=== PATIENT | male | born 1965 | race Caucasian/White ===

== ENCOUNTER 2017-11-04 21:23 | Inpatient (IN) | payer MEDICAID, OTHER ==
[2017-11-04] MEDS: ALBUTEROL 0.083% (NEB) 2.5 MG/3 ML AMP NEB (22:58)
[2017-11-04] MEDS: IPRATROPIUM (NEB) 0.5 MG/2.5 ML AMP NEB (22:58)
[2017-11-04] MEDS: METHYLPREDNISOLONE 125 MG INJ IV (23:39)
[2017-11-04 23:45] LABS: ADD MAN DIFF? NO
[2017-11-04 23:49] LABS: ABNORMAL IP MESSAGE 1; BASOPHIL # 0.1 10^3/ul (0.0-0.1); BASOPHILS % 0.6 % (0.0-2.0); EOSINOPHILS % 0.1 % (0.0-7.0); HEMATOCRIT 36.1 % (42.0-52.0); HEMOGLOBIN 12.4 g/dl (14.0-18.0); LYMPHOCYTES # 1.1 10^3/ul (0.8-2.9); LYMPHOCYTES % 5.3 % (15.0-51.0); MEAN CORPUSCULAR HEMOGLOBIN 30.1 pg (29.0-33.0); MEAN CORPUSCULAR HGB CONC 34.3 g/dl (32.0-37.0); MEAN CORPUSCULAR VOLUME 87.6 fl (82.0-101.0); MEAN PLATELET VOLUME 10.3 fl (7.4-10.4); MONOCYTE # 2.3 10^3/ul (0.3-0.9); MONOCYTES % 11.6 % (0.0-11.0); NEUTROPHIL # 16.4 10^3/ul (1.6-7.5); PLATELET COUNT 435 10^3/UL (140-415); POSITIVE DIFF @See below; RED BLOOD COUNT 4.12 10^6/ul (4.70-6.10); RED CELL DISTRIBUTION WIDTH 13.4 % (11.5-14.5)
[2017-11-05 00:20] LABS: ADD UMIC NO; UR ASCORBIC ACID NEGATIVE (NEGATIVE); UR BILIRUBIN (Dip) NEGATIVE (NEGATIVE); UR BLOOD (Dip) NEGATIVE (NEGATIVE); UR CLARITY CLEAR (CLEAR); UR COLOR STRAW (YELLOW); UR GLUCOSE (Dip) 3+ mg/dL (NEGATIVE); UR KETONES (Dip) 2+ mg/dL (NEGATIVE); UR LEUKOCYTE ESTERASE (Dip) NEGATIVE Leu/ul (NEGATIVE); UR NITRITE (Dip) NEGATIVE (NEGATIVE); UR SPECIFIC GRAVITY (Dip) 1.026 (1.003-1.030); UR TOTAL PROTEIN (Dip) NEGATIVE (NEGATIVE); UR UROBILINOGEN (Dip) NEGATIVE (NEGATIVE)
[2017-11-05 00:31] LABS: INR 1.03; PROTIME 13.6 Sec (11.9-14.9); PT RATIO 1.1
[2017-11-05 00:32] LABS: PARTIAL THROMBOPLASTIN TIME 36.4 Sec (25.0-35.0)
[2017-11-05 00:41] LABS: LACTIC ACID 1.7 mmol/L (0.5-2.0)
[2017-11-05 00:44] LABS: ALANINE AMINOTRANSFERASE 20 IU/L (13-69); ALBUMIN 3.2 g/dl (3.3-4.9); ALBUMIN/GLOBULIN RATIO 0.84; ALKALINE PHOSPHATASE 157 IU/L (42-121); ANION GAP 27 (8-16); ASPARTATE AMINO TRANSFERASE 12 IU/L (15-46); BILIRUBIN,INDIRECT 0.2 mg/dl (0-1.1); BILIRUBIN,TOTAL 0.2 mg/dl (0.2-1.3); BLOOD UREA NITROGEN 12 mg/dl (7-20); CALCIUM 9.3 mg/dl (8.4-10.2); CARBON DIOXIDE 23 mmol/L (21-31); CHLORIDE 84 mmol/L (97-110); CREATININE 0.52 mg/dl (0.61-1.24); POTASSIUM 5.4 mmol/L (3.5-5.1); SODIUM 129 mmol/L (135-144)
[2017-11-05 00:49] LABS: GLUCOSE 604 mg/dl (70-220)
[2017-11-05 01:24] LABS: TROPONIN-I < 0.012 ng/ml (0.00-0.12)
[2017-11-05] MEDS: CEFEPIME 2GM/50 ML (PMX) 50 ML IVPB (01:54)
[2017-11-05] MEDS: SODIUM CHLORIDE 0.9% 1L BAG IV* (01:54)
[2017-11-05 02:19] LABS: LACTIC ACID 1.4 mmol/L (0.5-2.0)
[2017-11-05] MEDS: VANCOMYCIN 1 GM (PMX) 250 ML IVPB (03:03)
[2017-11-05] MEDS: INSULIN LISPRO 100 UNIT/ML VIAL SC (04:10)
[2017-11-05] MEDS ORDERED: DEXTROSE 50% 50 ML SYRINGE IV ×2 (04:30)
[2017-11-05] MEDS ORDERED: IPRATROPIUM (NEB) 0.5 MG/2.5 ML AMP HHN (04:30)
[2017-11-05] MEDS ORDERED: LEVALBUTEROL (NEB) 0.63 MG/3 ML AMP HHN (04:30)
[2017-11-05] MEDS ORDERED: GLUCOSE GEL 15 GRAM TUBE BUCCAL (04:30)
[2017-11-05] MEDS ORDERED: GLUCOSE GEL 15 GRAM TUBE PO ×2 (04:30)
[2017-11-05] MEDS ORDERED: GLUCAGON 1 MG INJ IM (04:30)
[2017-11-05] MEDS: SOD CHLORIDE 0.9% 1,000 ML IV ×4 (04:46→20:12)
[2017-11-05] MEDS: INSULIN ASPART [NOVOLOG] 3 ML PEN SC ×6 (05:51→22:05)
[2017-11-05] MEDS: INSULIN GLARGINE [LANtus] 3 ML PEN SC ×2 (05:53→07:08)
[2017-11-05 07:00] LABS: LACTIC ACID 1.4 mmol/L (0.5-2.0)
[2017-11-05] MEDS: CEFTRIAXONE 1 GM/50 ML (PMX) 50 ML IVPB ×2 (08:33→21:57)
[2017-11-05] MEDS: AZITHROMYCIN 500MG/NS (PMX) 250 ML IVPB (10:46)
[2017-11-05 20:49] LABS: HEMOGLOBIN A1C 12.9 % (0-5.9)
[2017-11-06] MEDS: INSULIN GLARGINE [LANtus] 3 ML PEN SC ×2 (00:45→21:04)
[2017-11-06] MEDS: INSULIN ASPART [NOVOLOG] 3 ML PEN SC ×8 (00:46→21:05)
[2017-11-06] MEDS: ACCU-CHEK XX (02:00)
[2017-11-06] MEDS ORDERED: ACCU-CHEK XX (02:00)
[2017-11-06] MEDS: SOD CHLORIDE 0.9% 1,000 ML IV ×5 (04:32→14:30)
[2017-11-06 06:34] LABS: ADD MAN DIFF? NO
[2017-11-06 06:38] LABS: WHITE BLOOD COUNT 23.2 10^3/ul (4.8-10.8)
[2017-11-06 06:38] LABS: ABNORMAL IP MESSAGE 1; BASOPHILS % 0.1 % (0.0-2.0); EOSINOPHILS # 0.1 10^3/ul (0.0-0.5); EOSINOPHILS % 0.4 % (0.0-7.0); HEMATOCRIT 27.4 % (42.0-52.0); HEMOGLOBIN 9.8 g/dl (14.0-18.0); LYMPHOCYTES # 1.9 10^3/ul (0.8-2.9); LYMPHOCYTES % 8.1 % (15.0-51.0); MEAN CORPUSCULAR HEMOGLOBIN 31.1 pg (29.0-33.0); MEAN CORPUSCULAR HGB CONC 35.8 g/dl (32.0-37.0); MEAN PLATELET VOLUME 9.4 fl (7.4-10.4); MONOCYTE # 1.8 10^3/ul (0.3-0.9); MONOCYTES % 7.6 % (0.0-11.0); NEUTROPHIL # 19.2 10^3/ul (1.6-7.5); NEUTROPHILS % 83.1 % (39.0-77.0); PLATELET COUNT 331 10^3/UL (140-415); POSITIVE DIFF @See below; RED BLOOD COUNT 3.15 10^6/ul (4.70-6.10); RED CELL DISTRIBUTION WIDTH 13.4 % (11.5-14.5)
[2017-11-06 07:08] LABS: ANION GAP 9 (8-16); BLOOD UREA NITROGEN 14 mg/dl (7-20); CALCIUM 8.1 mg/dl (8.4-10.2); CARBON DIOXIDE 28 mmol/L (21-31); CHLORIDE 103 mmol/L (97-110); CREATININE 0.34 mg/dl (0.61-1.24); GLUCOSE 208 mg/dl (70-220); MAGNESIUM 1.8 mg/dl (1.7-2.5); PHOSPHORUS 1.6 mg/dl (2.5-4.9); POTASSIUM 3.1 mmol/L (3.5-5.1); SODIUM 137 mmol/L (135-144)
[2017-11-06 07:09] LABS: CHOLESTEROL 82 mg/dl (100-200)
[2017-11-06 07:09] LABS: CHOL/HDL RATIO 2.7 RATIO; HDL CHOLESTEROL 30 mg/dl (28-71); LDL CHOLESTEROL,CALCULATED 40 mg/dl; TRIGLYCERIDES 60 mg/dl (0-149)
[2017-11-06] MEDS: CEFTRIAXONE 1 GM/50 ML (PMX) 50 ML IVPB ×2 (08:42→21:03)
[2017-11-06] MEDS: ENOXAPARIN 40 MG/0.4 ML SYG SC (08:42)
[2017-11-06] MEDS: AZITHROMYCIN 500MG/NS (PMX) 250 ML IVPB (09:45)
[2017-11-06] MEDS: POTASSIUM PHOSPHATE 40 MEQ in SOD CHLORIDE 0.9% 250 ML IVPB (12:00)
[2017-11-07] MEDS: SOD CHLORIDE 0.9% 1,000 ML IV ×3 (00:50→16:00)
[2017-11-07] MEDS: ACCU-CHEK XX (01:44)
[2017-11-07 05:58] LABS: ADD MAN DIFF? NO
[2017-11-07 06:00] LABS: WHITE BLOOD COUNT 11.2 10^3/ul (4.8-10.8)
[2017-11-07 06:00] LABS: BASOPHILS % 0.4 % (0.0-2.0); EOSINOPHILS # 0.4 10^3/ul (0.0-0.5); EOSINOPHILS % 3.7 % (0.0-7.0); HEMATOCRIT 28.7 % (42.0-52.0); HEMOGLOBIN 9.9 g/dl (14.0-18.0); LYMPHOCYTES # 2.3 10^3/ul (0.8-2.9); LYMPHOCYTES % 20.9 % (15.0-51.0); MEAN CORPUSCULAR HEMOGLOBIN 30.2 pg (29.0-33.0); MEAN CORPUSCULAR HGB CONC 34.5 g/dl (32.0-37.0); MEAN CORPUSCULAR VOLUME 87.5 fl (82.0-101.0); MEAN PLATELET VOLUME 9.3 fl (7.4-10.4); MONOCYTE # 1.1 10^3/ul (0.3-0.9); MONOCYTES % 9.5 % (0.0-11.0); NEUTROPHIL # 7.3 10^3/ul (1.6-7.5); NEUTROPHILS % 65.1 % (39.0-77.0); PLATELET COUNT 287 10^3/UL (140-415); RED BLOOD COUNT 3.28 10^6/ul (4.70-6.10); RED CELL DISTRIBUTION WIDTH 13.6 % (11.5-14.5)
[2017-11-07 06:37] LABS: ANION GAP 10 (8-16); BLOOD UREA NITROGEN 10 mg/dl (7-20); CALCIUM 7.9 mg/dl (8.4-10.2); CARBON DIOXIDE 32 mmol/L (21-31); CHLORIDE 101 mmol/L (97-110); CREATININE 0.44 mg/dl (0.61-1.24); GLUCOSE 130 mg/dl (70-220); MAGNESIUM 1.7 mg/dl (1.7-2.5); PHOSPHORUS 2.9 mg/dl (2.5-4.9); POTASSIUM 3.7 mmol/L (3.5-5.1); SODIUM 139 mmol/L (135-144)
[2017-11-07] MEDS: INSULIN ASPART [NOVOLOG] 3 ML PEN SC ×7 (08:00→21:02)
[2017-11-07] MEDS: CEFTRIAXONE 1 GM/50 ML (PMX) 50 ML IVPB ×2 (08:31→21:04)
[2017-11-07] MEDS: AZITHROMYCIN 500MG/NS (PMX) 250 ML IVPB (09:47)
[2017-11-07] MEDS: ENOXAPARIN 40 MG/0.4 ML SYG SC (09:48)
[2017-11-07] MEDS: INSULIN GLARGINE [LANtus] 3 ML PEN SC (21:00)
== END 2017-11-07 21:55 | disposition home or self-care (01) | DRG 871 ==
LOC: E/R 21:23 → PP2 11-05 02:39
DX: A41.9 Sepsis, unspecified organism (principal); J18.9 Pneumonia, unspecified organism; E87.1 Hypo-osmolality and hyponatremia; E10.65 Type 1 diabetes mellitus with hyperglycemia; E87.5 Hyperkalemia; E87.6 Hypokalemia; R09.02 Hypoxemia; Z87.891 Personal history of nicotine dependence; Z79.4 Long term (current) use of insulin
CPT/HCPCS: 36415; 71045; 80048; 80053; 80061; 81003; 82962; 83036; 83605; 83735; 84100; 84484; 85025; 85610; 85730; 87040; 87086; 87400; 93005; 94664; 96372; 96374; 96375; 99291-25

== ENCOUNTER 2018-08-14 11:26 | Inpatient (IN) | payer MEDICAID ==
[2018-08-14 12:22] LABS: ADD MAN DIFF? NO
[2018-08-14] MEDS: ONDANSETRON 4 MG INJ IV (12:23)
[2018-08-14] MEDS: PIPER-TAZO 3.375 GM IV (PMX) 100 ML IVPB ×2 (12:24→20:40)
[2018-08-14] MEDS: morphine 4 MG/ML VIAL IV (12:24)
[2018-08-14] MEDS: SOD CHLORIDE 0.9% 1,000 ML IV ×3 (12:24→19:08)
[2018-08-14 12:31] LABS: ABNORMAL IP MESSAGE 1; BASOPHILS % 0.2 % (0.0-2.0); EOSINOPHILS % 0.1 % (0.0-7.0); HEMATOCRIT 34.6 % (42.0-52.0); HEMOGLOBIN 11.2 g/dl (14.0-18.0); LYMPHOCYTES # 1.3 10^3/ul (0.8-2.9); LYMPHOCYTES % 6.1 % (15.0-51.0); MEAN CORPUSCULAR HEMOGLOBIN 29.2 pg (29.0-33.0); MEAN CORPUSCULAR HGB CONC 32.4 g/dl (32.0-37.0); MEAN CORPUSCULAR VOLUME 90.3 fl (82.0-101.0); MEAN PLATELET VOLUME 10.4 fl (7.4-10.4); MONOCYTE # 1.7 10^3/ul (0.3-0.9); MONOCYTES % 8.2 % (0.0-11.0); NEUTROPHIL # 17.1 10^3/ul (1.6-7.5); NEUTROPHILS % 84.1 % (39.0-77.0); PLATELET COUNT 232 10^3/UL (140-415); POSITIVE DIFF @See below; RED BLOOD COUNT 3.83 10^6/ul (4.70-6.10); RED CELL DISTRIBUTION WIDTH 12.6 % (11.5-14.5)
[2018-08-14 12:31] LABS: WHITE BLOOD COUNT 20.4 10^3/ul (4.8-10.8)
[2018-08-14 12:49] LABS: LACTIC ACID 1.2 mmol/L (0.5-2.0)
[2018-08-14 12:49] LABS: ALANINE AMINOTRANSFERASE 47 IU/L (13-69); ALBUMIN 3.4 g/dl (3.3-4.9); ALBUMIN/GLOBULIN RATIO 1.25; ALKALINE PHOSPHATASE 210 IU/L (42-121); ANION GAP 24 (5-13); ASPARTATE AMINO TRANSFERASE 51 IU/L (15-46); BILIRUBIN,INDIRECT 0.3 mg/dl (0-1.1); BILIRUBIN,TOTAL 0.3 mg/dl (0.2-1.3); CARBON DIOXIDE 16 mmol/L (21-31); CHLORIDE 92 mmol/L (97-110); CREATININE 0.62 mg/dl (0.61-1.24); Estimated GFR > 60 mL/min (>60); INR 1.01; LIPASE 56 U/L (23-300); POTASSIUM 4.8 mmol/L (3.5-5.1); PROTIME 13.4 Sec (11.9-14.9); SODIUM 132 mmol/L (135-144); TOTAL PROTEIN 6.1 g/dl (6.1-8.1)
[2018-08-14 12:50] LABS: BLOOD UREA NITROGEN 24 mg/dl (7-20)
[2018-08-14 13:17] LABS: GLUCOSE 621 mg/dl (70-220)
[2018-08-14] MEDS: INSULIN REGULAR, HUMAN 100 UNIT/1 ML 3ML VIAL SC (13:25)
[2018-08-14] MEDS: CEFTRIAXONE 1 GM/50 ML (PMX) 50 ML IVPB (13:25)
[2018-08-14] MEDS ORDERED: DEXTROSE 50% 50 ML SYRINGE IV ×2 (13:30)
[2018-08-14] MEDS ORDERED: SODIUM CHLORIDE 23.4% 77 MEQ in DEXTROSE 10% 1,000 ML IV ×2 (13:30→16:46)
[2018-08-14] MEDS ORDERED: POTASSIUM CHLORIDE 40 MEQ in SOD CHLORIDE 0.9% 1,000 ML IV ×2 (13:30→16:46)
[2018-08-14] MEDS ORDERED: SODIUM CHLORIDE 23.4% 77 MEQ, POTASSIUM CHLORIDE 40 MEQ in DEXTROSE 10% 1,000 ML IV ×2 (13:30→16:46)
[2018-08-14] MEDS ORDERED: SOD CHLORIDE 0.9% 1,000 ML IV ×2 (13:30→16:46)
[2018-08-14 13:33] LABS: AADO2 Arterial 16.1 mmHg (7.0-24.0); Allen Test ACCEPTAB; Arterial Base Excess -11.3 mmol/L (-3.0-3); Arterial COHb 0.1 % (0.0-3.0); Arterial Fraction of Oxyhgb 96.8 % (93.0-99.0); Arterial HCO3 13.9 mmol/L (22.0-26.0); Arterial MetHb 0.1 % (0.0-1.5); MODE ROOM AIR; Site Left Radial
[2018-08-14] MEDS: SOD CHLORIDE 0.9% 100 ML (14:15)
[2018-08-14 14:16] LABS: HEMOGLOBIN A1C 13.7 % (0-5.9)
[2018-08-14] MEDS: IOHEXOL 300MG/ML 150 ML BTL (14:16)
[2018-08-14] MEDS: LACTATED RINGER'S 540 ML IV (14:34)
[2018-08-14] MEDS: VANCOMYCIN 1 GM (PMX) 250 ML IVPB (14:50)
[2018-08-14 15:13] LABS: ERYTHROCYTE SEDIMENTATION RATE 118 mm/Hr (0-20)
[2018-08-14 15:23] LABS: C-REACTIVE PROTEIN 34.9 mg/dl (0.0-0.9)
[2018-08-14 15:37] LABS: MODE ROOM AIR; MetHgb Venous 0 %; Sample Type Blood venous; Site VENOUS LINE; Venous COHb 0.1 %; Venous Fraction OxyHgb 86.9 %; Venous Total Hemglobin 11.6 g/dl
[2018-08-14] MEDS: INSULIN REGULAR, HUMAN 100 UNIT in SOD CHLORIDE 0.9% 100 ML IV (15:38)
[2018-08-14] MEDS: POTASSIUM CHLORIDE 30 MEQ in SOD CHLORIDE 0.9% 1,000 ML IV (15:40)
[2018-08-14 15:55] LABS: ADD UMIC YES; UR ASCORBIC ACID NEGATIVE (NEGATIVE); UR BILIRUBIN (Dip) NEGATIVE (NEGATIVE); UR BLOOD (Dip) 1+ mg/dL (NEGATIVE); UR CLARITY CLEAR (CLEAR); UR COLOR STRAW (YELLOW); UR GLUCOSE (Dip) 3+ mg/dL (NEGATIVE); UR KETONES (Dip) 2+ mg/dL (NEGATIVE); UR LEUKOCYTE ESTERASE (Dip) NEGATIVE Leu/ul (NEGATIVE); UR NITRITE (Dip) NEGATIVE (NEGATIVE); UR RBC 1 /HPF (0-5); UR SPECIFIC GRAVITY (Dip) 1.032 (1.003-1.030); UR TOTAL PROTEIN (Dip) NEGATIVE (NEGATIVE); UR UROBILINOGEN (Dip) NEGATIVE (NEGATIVE); UR WBC 0 /HPF (0-5)
[2018-08-14 16:32] LABS: ANION GAP 19 (5-13); BLOOD UREA NITROGEN 18 mg/dl (7-20); CALCIUM 8.8 mg/dl (8.4-10.2); CARBON DIOXIDE 19 mmol/L (21-31); CHLORIDE 101 mmol/L (97-110); CREATININE 0.45 mg/dl (0.61-1.24); Estimated GFR > 60 mL/min (>60); GLUCOSE 345 mg/dl (70-220); MAGNESIUM 1.9 mg/dl (1.7-2.5); PHOSPHORUS 2.3 mg/dl (2.5-4.9); SODIUM 139 mmol/L (135-144)
[2018-08-14] MEDS ORDERED: POTASSIUM CHLORIDE 30 MEQ in SOD CHLORIDE 0.9% 1,000 ML IV (16:46)
[2018-08-14] MEDS: SODIUM CHLORIDE 23.4% 77 MEQ, POTASSIUM CHLORIDE 30 MEQ in DEXTROSE 10% 1,000 ML IV (16:51)
[2018-08-14] MEDS ORDERED: LORAZEPAM 2 MG INJ IV (17:00)
[2018-08-14] MEDS ORDERED: VANCOMYCIN IV PER PHARMACY XX (17:00)
[2018-08-14] MEDS ORDERED: NITROGLYCERIN (SL) 0.4 MG TAB SL (17:00)
[2018-08-14] MEDS ORDERED: ONDANSETRON 4 MG INJ IV (17:00)
[2018-08-14] MEDS ORDERED: DOCUSATE SODIUM 100 MG CAP PO (17:00)
[2018-08-14] MEDS ORDERED: MAGNESIUM HYDROXIDE 30ML CUP PO (17:00)
[2018-08-14] MEDS ORDERED: ACETAMINOPHEN 325 MG TAB PO (17:00)
[2018-08-14] MEDS: ACCU-CHEK XX ×7 (17:00→23:49)
[2018-08-14] MEDS ORDERED: ALBUTEROL/IPRATROPIUM (NEB) 3 ML AMP HHN (17:00)
[2018-08-14] MEDS ORDERED: INSULIN REGULAR, HUMAN 100 UNIT in SOD CHLORIDE 0.9% 100 ML IV (17:00)
[2018-08-14] MEDS ORDERED: hydrALAzine 20 MG INJ IV (17:00)
[2018-08-14] MEDS ORDERED: NACL 0.9% 3 ML SYG IV (17:00)
[2018-08-14 17:33] LABS: Allen Test ACCEPTAB; MODE ROOM AIR; MetHgb Venous 0.1 %; Sample Type Blood venous; Site VENOUS LINE; Venous COHb 0.3 %; Venous Fraction OxyHgb 75.4 %; Venous Oxygen Sat 75.7 mmHG (55.0-75.0); Venous Total Hemglobin 11.3 g/dl
[2018-08-14 17:51] LABS: FREE T4 (FREE THYROXINE) 1.15 ng/dl (0.64-1.79)
[2018-08-14 19:35] LABS: ANION GAP 13 (5-13); BLOOD UREA NITROGEN 14 mg/dl (7-20); CALCIUM 8.7 mg/dl (8.4-10.2); CARBON DIOXIDE 20 mmol/L (21-31); CHLORIDE 105 mmol/L (97-110); CREATININE 0.43 mg/dl (0.61-1.24); Estimated GFR > 60 mL/min (>60); GLUCOSE 218 mg/dl (70-220); MAGNESIUM 1.9 mg/dl (1.7-2.5); PHOSPHORUS 1.7 mg/dl (2.5-4.9); POTASSIUM 3.9 mmol/L (3.5-5.1); SODIUM 138 mmol/L (135-144)
[2018-08-14 21:33] LABS: MODE ROOM AIR; MetHgb Venous 0.1 %; Sample Type Blood venous; Site VENOUS LINE; Venous COHb 0.1 %; Venous Fraction OxyHgb 93.7 %; Venous Oxygen Sat 93.9 mmHG (55.0-75.0); Venous Total Hemglobin 10.7 g/dl
[2018-08-14 22:31] LABS: ANION GAP 9 (5-13); BLOOD UREA NITROGEN 13 mg/dl (7-20); CALCIUM 8.5 mg/dl (8.4-10.2); CARBON DIOXIDE 25 mmol/L (21-31); CHLORIDE 106 mmol/L (97-110); CREATININE 0.43 mg/dl (0.61-1.24); Estimated GFR > 60 mL/min (>60); GLUCOSE 265 mg/dl (70-220); MAGNESIUM 1.8 mg/dl (1.7-2.5); POTASSIUM 3.9 mmol/L (3.5-5.1); SODIUM 140 mmol/L (135-144)
[2018-08-14] MEDS: HEPARIN 5,000 UNIT/1 ML VIAL SC (22:44)
[2018-08-15] MEDS: ACCU-CHEK XX ×8 (00:25→06:00)
[2018-08-15] MEDS: INSULIN GLARGINE [LANTus] (100 UNITS/ML) SYG SC ×2 (00:31→21:02)
[2018-08-15] MEDS: PIPER-TAZO 3.375 GM IV (PMX) 100 ML IVPB ×4 (01:49→17:20)
[2018-08-15] MEDS: SODIUM CHLORIDE 23.4% 77 MEQ, POTASSIUM CHLORIDE 30 MEQ in DEXTROSE 10% 1,000 ML IV (01:50)
[2018-08-15] MEDS: SOD CHLORIDE 0.9% 1,000 ML IV ×3 (02:46→22:46)
[2018-08-15] MEDS: VANCOMYCIN 1 GM in 250 ML IVPB ×2 (03:24→15:20)
[2018-08-15 05:23] LABS: ADD MAN DIFF? NO
[2018-08-15 05:41] LABS: ABNORMAL IP MESSAGE 1; BASOPHILS % 0.1 % (0.0-2.0); EOSINOPHILS # 0.5 10^3/ul (0.0-0.5); EOSINOPHILS % 3.8 % (0.0-7.0); HEMATOCRIT 27.4 % (42.0-52.0); HEMOGLOBIN 9.4 g/dl (14.0-18.0); LYMPHOCYTES # 1.3 10^3/ul (0.8-2.9); LYMPHOCYTES % 9.7 % (15.0-51.0); MEAN CORPUSCULAR HEMOGLOBIN 30.2 pg (29.0-33.0); MEAN CORPUSCULAR HGB CONC 34.3 g/dl (32.0-37.0); MEAN CORPUSCULAR VOLUME 88.1 fl (82.0-101.0); MEAN PLATELET VOLUME 10.4 fl (7.4-10.4); MONOCYTES % 14.6 % (0.0-11.0); NEUTROPHIL # 9.4 10^3/ul (1.6-7.5); NEUTROPHILS % 70.6 % (39.0-77.0); PLATELET COUNT 202 10^3/UL (140-415); POSITIVE DIFF @See below; RED BLOOD COUNT 3.11 10^6/ul (4.70-6.10); RED CELL DISTRIBUTION WIDTH 12.5 % (11.5-14.5)
[2018-08-15 05:41] LABS: WHITE BLOOD COUNT 13.4 10^3/ul (4.8-10.8)
[2018-08-15] MEDS: PANTOPRAZOLE (EC) 40 MG TAB PO (05:50)
[2018-08-15 06:18] LABS: HEMOGLOBIN A1C 13.4 % (0-5.9)
[2018-08-15 06:36] LABS: ANION GAP 8 (5-13); BLOOD UREA NITROGEN 10 mg/dl (7-20); CALCIUM 8.2 mg/dl (8.4-10.2); CARBON DIOXIDE 25 mmol/L (21-31); CHLORIDE 106 mmol/L (97-110); CREATININE 0.46 mg/dl (0.61-1.24); Estimated GFR > 60 mL/min (>60); GLUCOSE 247 mg/dl (70-220); MAGNESIUM 1.8 mg/dl (1.7-2.5); PHOSPHORUS 1.1 mg/dl (2.5-4.9); POTASSIUM 3.7 mmol/L (3.5-5.1); SODIUM 139 mmol/L (135-144)
[2018-08-15 06:40] LABS: CHOLESTEROL 93 mg/dl (100-200)
[2018-08-15 06:40] LABS: CHOL/HDL RATIO 3.1 RATIO; HDL CHOLESTEROL 30 mg/dl (28-71); LDL CHOLESTEROL,CALCULATED 49 mg/dl; TRIGLYCERIDES 68 mg/dl (0-149)
[2018-08-15] MEDS: HYDROmorphONE 0.5 MG/0.5 ML SYG IV (07:32)
[2018-08-15] MEDS ORDERED: GLUCAGON 1 MG INJ IM (08:00)
[2018-08-15] MEDS ORDERED: GLUCOSE GEL 15 GRAM TUBE BUCCAL (08:00)
[2018-08-15] MEDS ORDERED: GLUCOSE GEL 15 GRAM TUBE PO ×2 (08:00)
[2018-08-15] MEDS: INSULIN ASPART [NOVOLOG] 3 ML PEN SC ×6 (08:06→21:02)
[2018-08-15 09:33] LABS: ANION GAP 9 (5-13); BLOOD UREA NITROGEN 10 mg/dl (7-20); CALCIUM 8.3 mg/dl (8.4-10.2); CARBON DIOXIDE 25 mmol/L (21-31); CHLORIDE 104 mmol/L (97-110); CREATININE 0.44 mg/dl (0.61-1.24); Estimated GFR > 60 mL/min (>60); GLUCOSE 260 mg/dl (70-220); MAGNESIUM 1.8 mg/dl (1.7-2.5); PHOSPHORUS 1.5 mg/dl (2.5-4.9); POTASSIUM 3.6 mmol/L (3.5-5.1); SODIUM 138 mmol/L (135-144)
[2018-08-15] MEDS: HEPARIN 5,000 UNIT/1 ML VIAL SC ×2 (10:22→21:03)
[2018-08-15] MEDS ORDERED: INSULIN ASPART [NOVOLOG] 3 ML PEN SC (11:30)
[2018-08-15] MEDS: HYDROmorphONE 2 MG TAB PO ×2 (12:51→18:33)
[2018-08-15] MEDS ORDERED: LORAZEPAM 4 MG/ML VIAL IV (13:30)
[2018-08-15 14:06] LABS: ANION GAP 11 (5-13); BLOOD UREA NITROGEN 10 mg/dl (7-20); CALCIUM 8.3 mg/dl (8.4-10.2); CARBON DIOXIDE 24 mmol/L (21-31); CHLORIDE 101 mmol/L (97-110); CREATININE 0.41 mg/dl (0.61-1.24); Estimated GFR > 60 mL/min (>60); GLUCOSE 312 mg/dl (70-220); MAGNESIUM 1.8 mg/dl (1.7-2.5); PHOSPHORUS 1.5 mg/dl (2.5-4.9); POTASSIUM 3.5 mmol/L (3.5-5.1); SODIUM 136 mmol/L (135-144)
[2018-08-15] MEDS: MAGNESIUM SULFATE 2 GM/50 ML 50 ML IVPB (14:12)
[2018-08-15 18:44] LABS: ANION GAP 7 (5-13); BLOOD UREA NITROGEN 8 mg/dl (7-20); CALCIUM 8.2 mg/dl (8.4-10.2); CARBON DIOXIDE 25 mmol/L (21-31); CHLORIDE 103 mmol/L (97-110); Estimated GFR > 60 mL/min (>60); GLUCOSE 235 mg/dl (70-220); MAGNESIUM 1.9 mg/dl (1.7-2.5); PHOSPHORUS 1.4 mg/dl (2.5-4.9); POTASSIUM 3.4 mmol/L (3.5-5.1); SODIUM 135 mmol/L (135-144)
[2018-08-15] MEDS ORDERED: INSULIN GLARGINE [LANTus] (100 UNITS/ML) SYG SC (20:00)
[2018-08-15 21:51] LABS: ANION GAP 7 (5-13); BLOOD UREA NITROGEN 9 mg/dl (7-20); CALCIUM 8.1 mg/dl (8.4-10.2); CARBON DIOXIDE 24 mmol/L (21-31); CHLORIDE 102 mmol/L (97-110); CREATININE 0.49 mg/dl (0.61-1.24); Estimated GFR > 60 mL/min (>60); GLUCOSE 260 mg/dl (70-220); PHOSPHORUS 1.6 mg/dl (2.5-4.9); POTASSIUM 3.7 mmol/L (3.5-5.1); SODIUM 133 mmol/L (135-144)
[2018-08-15] MEDS: HYDROCODONE/APAP (5/325) TAB PO (22:56)
[2018-08-16] MEDS: PIPER-TAZO 3.375 GM IV (PMX) 100 ML IVPB ×4 (00:21→18:15)
[2018-08-16] MEDS: ACCU-CHEK XX (02:00)
[2018-08-16 02:33] LABS: ADD MAN DIFF? NO
[2018-08-16 02:35] LABS: WHITE BLOOD COUNT 14.5 10^3/ul (4.8-10.8)
[2018-08-16 02:35] LABS: ABNORMAL IP MESSAGE 1; BASOPHILS % 0.2 % (0.0-2.0); EOSINOPHILS # 0.5 10^3/ul (0.0-0.5); EOSINOPHILS % 3.6 % (0.0-7.0); LYMPHOCYTES # 1.4 10^3/ul (0.8-2.9); MEAN CORPUSCULAR HEMOGLOBIN 29.8 pg (29.0-33.0); MEAN CORPUSCULAR HGB CONC 33.3 g/dl (32.0-37.0); MEAN CORPUSCULAR VOLUME 89.4 fl (82.0-101.0); MEAN PLATELET VOLUME 10.1 fl (7.4-10.4); MONOCYTE # 1.9 10^3/ul (0.3-0.9); MONOCYTES % 12.8 % (0.0-11.0); NEUTROPHIL # 10.5 10^3/ul (1.6-7.5); NEUTROPHILS % 72.4 % (39.0-77.0); NUCLEATED RED BLOOD CELLS% 0.1 /100WBC (0.0-0.0); PLATELET COUNT 207 10^3/UL (140-415); POSITIVE DIFF @See below; RED BLOOD COUNT 3.02 10^6/ul (4.70-6.10); RED CELL DISTRIBUTION WIDTH 12.8 % (11.5-14.5)
[2018-08-16 02:52] LABS: ANION GAP 7 (5-13); BLOOD UREA NITROGEN 10 mg/dl (7-20); CALCIUM 7.8 mg/dl (8.4-10.2); CARBON DIOXIDE 25 mmol/L (21-31); CHLORIDE 102 mmol/L (97-110); Estimated GFR > 60 mL/min (>60); GLUCOSE 308 mg/dl (70-220); POTASSIUM 3.6 mmol/L (3.5-5.1); SODIUM 134 mmol/L (135-144)
[2018-08-16 03:00] LABS: VANCOMYCIN,TROUGH 6.8 ug/ml (10.0-20.0)
[2018-08-16] MEDS: VANCOMYCIN 1 GM in 250 ML IVPB (03:14)
[2018-08-16] MEDS: PANTOPRAZOLE (EC) 40 MG TAB PO (06:12)
[2018-08-16] MEDS ORDERED: CEFAZOLIN 1 GM INJ (07:00)
[2018-08-16] MEDS ORDERED: PROPOFOL 20 ML (07:45)
[2018-08-16] MEDS ORDERED: LIDOCAINE 2% (SDV) 5 ML INJ (07:45)
[2018-08-16] MEDS ORDERED: MIDAZOLAM 1 MG/ML 2 ML INJ (07:45)
[2018-08-16] MEDS ORDERED: FENTAnyl 50 MCG/ML VIAL (07:45)
[2018-08-16] MEDS ORDERED: METOCLOPRAMIDE 10 MG INJ (07:51)
[2018-08-16] MEDS: INSULIN ASPART [NOVOLOG] 3 ML PEN SC ×7 (07:55→20:16)
[2018-08-16] MEDS ORDERED: PHENYLephrine (100 MCG/ML) 5ML SYG ×2 (07:57→09:53)
[2018-08-16] MEDS ORDERED: FAMOTIDINE 20 MG INJ (08:01)
[2018-08-16] MEDS ORDERED: ONDANSETRON 4 MG INJ (08:01)
[2018-08-16] MEDS ORDERED: DEXAMETHASONE 4 MG/ML 5 ML INJ (08:01)
[2018-08-16] MEDS: HEPARIN 5,000 UNIT/1 ML VIAL SC ×2 (09:00→20:15)
[2018-08-16] MEDS ORDERED: FENTAnyl 50 MCG/ML VIAL IV ×3 (10:00)
[2018-08-16] MEDS ORDERED: MEPERIDINE 25 MG INJ IV (10:00)
[2018-08-16] MEDS ORDERED: PROCHLORPERAZINE 10 MG INJ IV (10:00)
[2018-08-16] MEDS ORDERED: EPHEDrine SULFATE 50 MG/5 ML SYG IV (10:00)
[2018-08-16] MEDS ORDERED: HYDROmorphONE 1 MG/5 ML IV SYRINGE IV ×2 (10:00)
[2018-08-16] MEDS ORDERED: DIPHENHYDRAMINE 50 MG INJ IV (10:00)
[2018-08-16] MEDS: HYDROmorphONE 1 MG/5 ML IV SYRINGE IV (10:51)
[2018-08-16] MEDS: ONDANSETRON 4 MG INJ IV (10:52)
[2018-08-16 11:34] LABS: PHOSPHORUS 2.5 mg/dl (2.5-4.9)
[2018-08-16] MEDS: VANCOMYCIN 750 MG in SOD CHLORIDE 0.9% 150 ML IVPB ×2 (14:35→21:01)
[2018-08-16] MEDS: SOD CHLORIDE 0.9% 1,000 ML IV ×2 (18:18→18:23)
[2018-08-16] MEDS: HYDROmorphONE 1 MG/ML SYG IV ×2 (18:22→21:01)
[2018-08-16] MEDS ORDERED: INSULIN GLARGINE [LANTus] (100 UNITS/ML) SYG SC (20:00)
[2018-08-16] MEDS: MUPIROCIN 2% 22 GM OINT TOP (20:12)
[2018-08-16] MEDS: INSULIN GLARGINE [LANTus] (100 UNITS/ML) SYG SC (20:15)
[2018-08-17] MEDS: PIPER-TAZO 3.375 GM IV (PMX) 100 ML IVPB ×4 (00:44→17:24)
[2018-08-17] MEDS: ACCU-CHEK XX (02:55)
[2018-08-17] MEDS: VANCOMYCIN 750 MG in SOD CHLORIDE 0.9% 150 ML IVPB ×2 (04:25→12:14)
[2018-08-17] MEDS: SOD CHLORIDE 0.9% 1,000 ML IV ×2 (04:52→15:11)
[2018-08-17 05:58] LABS: ADD MAN DIFF? NO
[2018-08-17 06:13] LABS: WHITE BLOOD COUNT 14.5 10^3/ul (4.8-10.8)
[2018-08-17 06:13] LABS: BASOPHILS % 0.3 % (0.0-2.0); EOSINOPHILS # 0.5 10^3/ul (0.0-0.5); EOSINOPHILS % 3.7 % (0.0-7.0); HEMATOCRIT 24.9 % (42.0-52.0); HEMOGLOBIN 8.5 g/dl (14.0-18.0); LYMPHOCYTES # 1.6 10^3/ul (0.8-2.9); MEAN CORPUSCULAR HEMOGLOBIN 30.4 pg (29.0-33.0); MEAN CORPUSCULAR HGB CONC 34.1 g/dl (32.0-37.0); MEAN CORPUSCULAR VOLUME 88.9 fl (82.0-101.0); MEAN PLATELET VOLUME 10.6 fl (7.4-10.4); MONOCYTE # 1.2 10^3/ul (0.3-0.9); MONOCYTES % 8.3 % (0.0-11.0); NEUTROPHILS % 75.7 % (39.0-77.0); PLATELET COUNT 237 10^3/UL (140-415); POSITIVE DIFF @See below; RED CELL DISTRIBUTION WIDTH 12.8 % (11.5-14.5)
[2018-08-17] MEDS: PANTOPRAZOLE (EC) 40 MG TAB PO (06:36)
[2018-08-17 06:39] LABS: MAGNESIUM 1.8 mg/dl (1.7-2.5)
[2018-08-17 06:39] LABS: PHOSPHORUS 2.3 mg/dl (2.5-4.9)
[2018-08-17 07:12] LABS: ANION GAP 8 (5-13); BLOOD UREA NITROGEN 11 mg/dl (7-20); CALCIUM 7.5 mg/dl (8.4-10.2); CARBON DIOXIDE 26 mmol/L (21-31); CHLORIDE 103 mmol/L (97-110); CREATININE 0.42 mg/dl (0.61-1.24); Estimated GFR > 60 mL/min (>60); GLUCOSE 182 mg/dl (70-220); POTASSIUM 3.4 mmol/L (3.5-5.1); SODIUM 137 mmol/L (135-144)
[2018-08-17] MEDS: INSULIN ASPART [NOVOLOG] 3 ML PEN SC ×7 (07:48→21:16)
[2018-08-17] MEDS: MUPIROCIN 2% 22 GM OINT TOP ×2 (09:08→21:22)
[2018-08-17] MEDS: HEPARIN 5,000 UNIT/1 ML VIAL SC ×2 (09:13→21:16)
[2018-08-17] MEDS: HYDROmorphONE 1 MG/ML SYG IV ×2 (11:22→21:55)
[2018-08-17 12:48] LABS: VANCOMYCIN,TROUGH 9.2 ug/ml (10.0-20.0)
[2018-08-17] MEDS: POTASSIUM PHOSPHATE 40 MEQ in SOD CHLORIDE 0.9% 250 ML IVPB (14:45)
[2018-08-17] MEDS ORDERED: INSULIN GLARGINE [LANTus] (100 UNITS/ML) SYG SC (20:00)
[2018-08-17] MEDS: VANCOMYCIN 1 GM 250 ML IVPB (21:03)
[2018-08-17] MEDS: INSULIN GLARGINE [LANTus] (100 UNITS/ML) SYG SC (21:16)
[2018-08-18] MEDS: SOD CHLORIDE 0.9% 1,000 ML IV ×3 (00:05→20:33)
[2018-08-18] MEDS: PIPER-TAZO 3.375 GM IV (PMX) 100 ML IVPB ×3 (00:05→11:53)
[2018-08-18] MEDS: ACCU-CHEK XX (02:00)
[2018-08-18] MEDS: VANCOMYCIN 1 GM 250 ML IVPB ×2 (04:58→12:37)
[2018-08-18] MEDS: PANTOPRAZOLE (EC) 40 MG TAB PO (05:38)
[2018-08-18 06:10] LABS: ADD MAN DIFF? NO
[2018-08-18 06:27] LABS: WHITE BLOOD COUNT 10.2 10^3/ul (4.8-10.8)
[2018-08-18 06:27] LABS: BASOPHILS % 0.3 % (0.0-2.0); EOSINOPHILS # 0.6 10^3/ul (0.0-0.5); EOSINOPHILS % 5.5 % (0.0-7.0); HEMATOCRIT 25.5 % (42.0-52.0); HEMOGLOBIN 8.5 g/dl (14.0-18.0); LYMPHOCYTES # 1.6 10^3/ul (0.8-2.9); LYMPHOCYTES % 15.6 % (15.0-51.0); MEAN CORPUSCULAR HEMOGLOBIN 29.9 pg (29.0-33.0); MEAN CORPUSCULAR HGB CONC 33.3 g/dl (32.0-37.0); MEAN CORPUSCULAR VOLUME 89.8 fl (82.0-101.0); MEAN PLATELET VOLUME 11.6 fl (7.4-10.4); MONOCYTE # 0.9 10^3/ul (0.3-0.9); MONOCYTES % 8.7 % (0.0-11.0); NEUTROPHILS % 68.9 % (39.0-77.0); PLATELET COUNT 229 10^3/UL (140-415); RED BLOOD COUNT 2.84 10^6/ul (4.70-6.10)
[2018-08-18 06:39] LABS: ANION GAP 8 (5-13); BLOOD UREA NITROGEN 10 mg/dl (7-20); CALCIUM 7.8 mg/dl (8.4-10.2); CARBON DIOXIDE 29 mmol/L (21-31); CHLORIDE 102 mmol/L (97-110); Estimated GFR > 60 mL/min (>60); GLUCOSE 156 mg/dl (70-220); POTASSIUM 3.4 mmol/L (3.5-5.1); SODIUM 139 mmol/L (135-144)
[2018-08-18] MEDS: INSULIN ASPART [NOVOLOG] 3 ML PEN SC ×7 (07:41→20:33)
[2018-08-18] MEDS: MUPIROCIN 2% 22 GM OINT TOP ×2 (08:42→20:32)
[2018-08-18] MEDS: HEPARIN 5,000 UNIT/1 ML VIAL SC ×2 (08:47→20:32)
[2018-08-18] MEDS ORDERED: VANCOMYCIN 750 MG in SOD CHLORIDE 0.9% 150 ML IVPB (09:00)
[2018-08-18] MEDS: HYDROmorphONE 1 MG/ML SYG IV ×3 (09:10→21:46)
[2018-08-18] MEDS: TRIMETHOPRIM/SULFAMETHOX (DS) TAB PO ×2 (11:52→20:32)
[2018-08-18] MEDS: CLINDAMYCIN 150 MG CAP PO ×2 (12:34→17:42)
[2018-08-18] MEDS: INSULIN GLARGINE [LANTus] (100 UNITS/ML) SYG SC (20:32)
[2018-08-19] MEDS: CLINDAMYCIN 150 MG CAP PO ×3 (00:46→13:15)
[2018-08-19] MEDS: HYDROmorphONE 1 MG/ML SYG IV ×3 (00:47→21:10)
[2018-08-19] MEDS: ACCU-CHEK XX (01:04)
[2018-08-19] MEDS: PANTOPRAZOLE (EC) 40 MG TAB PO (05:22)
[2018-08-19] MEDS: SOD CHLORIDE 0.9% 1,000 ML IV ×2 (05:23→15:40)
[2018-08-19 06:09] LABS: ADD MAN DIFF? NO
[2018-08-19 06:11] LABS: BASOPHILS % 0.2 % (0.0-2.0); EOSINOPHILS # 0.4 10^3/ul (0.0-0.5); EOSINOPHILS % 3.1 % (0.0-7.0); HEMATOCRIT 31.8 % (42.0-52.0); HEMOGLOBIN 10.5 g/dl (14.0-18.0); LYMPHOCYTES # 1.4 10^3/ul (0.8-2.9); LYMPHOCYTES % 11.9 % (15.0-51.0); MEAN CORPUSCULAR HEMOGLOBIN 29.7 pg (29.0-33.0); MEAN CORPUSCULAR VOLUME 90.1 fl (82.0-101.0); MEAN PLATELET VOLUME 9.7 fl (7.4-10.4); MONOCYTE # 0.9 10^3/ul (0.3-0.9); MONOCYTES % 7.5 % (0.0-11.0); NEUTROPHIL # 9.2 10^3/ul (1.6-7.5); NEUTROPHILS % 76.3 % (39.0-77.0); PLATELET COUNT 398 10^3/UL (140-415); RED BLOOD COUNT 3.53 10^6/ul (4.70-6.10)
[2018-08-19 06:11] LABS: WHITE BLOOD COUNT 12.1 10^3/ul (4.8-10.8)
[2018-08-19 06:54] LABS: ANION GAP 8 (5-13); BLOOD UREA NITROGEN 8 mg/dl (7-20); CALCIUM 8.4 mg/dl (8.4-10.2); CARBON DIOXIDE 35 mmol/L (21-31); CHLORIDE 96 mmol/L (97-110); CREATININE 0.39 mg/dl (0.61-1.24); Estimated GFR > 60 mL/min (>60); GLUCOSE 70 mg/dl (70-220); POTASSIUM 3.9 mmol/L (3.5-5.1); SODIUM 139 mmol/L (135-144)
[2018-08-19] MEDS: INSULIN ASPART [NOVOLOG] 3 ML PEN SC ×8 (08:00→21:00)
[2018-08-19] MEDS: TRIMETHOPRIM/SULFAMETHOX (DS) TAB PO (08:34)
[2018-08-19] MEDS: LISINOPRIL 10 MG TAB PO (08:37)
[2018-08-19] MEDS: HEPARIN 5,000 UNIT/1 ML VIAL SC ×2 (08:38→21:20)
[2018-08-19] MEDS: MUPIROCIN 2% 22 GM OINT TOP ×2 (08:47→21:15)
[2018-08-19] MEDS ORDERED: VANCOMYCIN IV PER PHARMACY XX (18:00)
[2018-08-19] MEDS: PIPER-TAZO 3.375 GM IV (PMX) 100 ML IVPB (18:10)
[2018-08-19] MEDS: VANCOMYCIN 1 GM 250 ML IVPB (20:04)
[2018-08-19] MEDS: INSULIN GLARGINE [LANTus] (100 UNITS/ML) SYG SC (20:11)
[2018-08-19] MEDS ORDERED: VANCOMYCIN 1 GM (PMX) 250 ML IVPB (21:00)
[2018-08-20] MEDS: ACCU-CHEK XX (02:00)
[2018-08-20] MEDS: SOD CHLORIDE 0.9% 1,000 ML IV ×3 (02:12→19:13)
[2018-08-20] MEDS: VANCOMYCIN 1 GM 250 ML IVPB ×3 (04:13→20:45)
[2018-08-20] MEDS: HYDROmorphONE 1 MG/ML SYG IV ×4 (04:20→20:44)
[2018-08-20] MEDS: PANTOPRAZOLE (EC) 40 MG TAB PO (06:36)
[2018-08-20] MEDS: PIPER-TAZO 3.375 GM IV (PMX) 100 ML IVPB ×3 (06:36→15:00)
[2018-08-20 06:54] LABS: ADD MAN DIFF? NO
[2018-08-20 06:57] LABS: BASOPHILS % 0.2 % (0.0-2.0); EOSINOPHILS # 0.4 10^3/ul (0.0-0.5); EOSINOPHILS % 3.7 % (0.0-7.0); HEMATOCRIT 25.7 % (42.0-52.0); HEMOGLOBIN 8.5 g/dl (14.0-18.0); LYMPHOCYTES # 1.7 10^3/ul (0.8-2.9); LYMPHOCYTES % 15.7 % (15.0-51.0); MEAN CORPUSCULAR HEMOGLOBIN 29.6 pg (29.0-33.0); MEAN CORPUSCULAR HGB CONC 33.1 g/dl (32.0-37.0); MEAN CORPUSCULAR VOLUME 89.5 fl (82.0-101.0); MEAN PLATELET VOLUME 9.6 fl (7.4-10.4); MONOCYTE # 1.3 10^3/ul (0.3-0.9); MONOCYTES % 11.7 % (0.0-11.0); NEUTROPHIL # 7.5 10^3/ul (1.6-7.5); NEUTROPHILS % 67.4 % (39.0-77.0); PLATELET COUNT 417 10^3/UL (140-415); RED BLOOD COUNT 2.87 10^6/ul (4.70-6.10); RED CELL DISTRIBUTION WIDTH 13.1 % (11.5-14.5)
[2018-08-20 06:57] LABS: WHITE BLOOD COUNT 11.1 10^3/ul (4.8-10.8)
[2018-08-20 07:20] LABS: ANION GAP 7 (5-13); BLOOD UREA NITROGEN 14 mg/dl (7-20); CALCIUM 7.8 mg/dl (8.4-10.2); CARBON DIOXIDE 30 mmol/L (21-31); CHLORIDE 99 mmol/L (97-110); CREATININE 0.59 mg/dl (0.61-1.24); Estimated GFR > 60 mL/min (>60); GLUCOSE 55 mg/dl (70-220); POTASSIUM 3.6 mmol/L (3.5-5.1); SODIUM 136 mmol/L (135-144)
[2018-08-20] MEDS: INSULIN ASPART [NOVOLOG] 3 ML PEN SC ×7 (08:00→20:55)
[2018-08-20] MEDS: HEPARIN 5,000 UNIT/1 ML VIAL SC ×2 (08:30→20:52)
[2018-08-20] MEDS: LISINOPRIL 10 MG TAB PO (08:31)
[2018-08-20] MEDS: MUPIROCIN 2% 22 GM OINT TOP ×2 (08:31→20:58)
[2018-08-20] MEDS: DEXTROSE 50% 50 ML SYRINGE IV (09:53)
[2018-08-20 19:50] LABS: VANCOMYCIN,TROUGH 15.7 ug/ml (10.0-20.0)
[2018-08-20] MEDS: INSULIN GLARGINE [LANTus] (100 UNITS/ML) SYG SC (20:48)
[2018-08-21] MEDS: HYDROmorphONE 1 MG/ML SYG IV ×5 (00:22→21:56)
[2018-08-21] MEDS: PIPER-TAZO 3.375 GM IV (PMX) 100 ML IVPB ×3 (00:22→15:47)
[2018-08-21] MEDS: ACCU-CHEK XX (02:00)
[2018-08-21] MEDS: VANCOMYCIN 1 GM 250 ML IVPB ×3 (05:41→20:42)
[2018-08-21] MEDS: PANTOPRAZOLE (EC) 40 MG TAB PO (05:56)
[2018-08-21] MEDS: HYDROmorphONE 2 MG TAB PO (05:57)
[2018-08-21 06:44] LABS: ADD MAN DIFF? NO
[2018-08-21 07:02] LABS: BASOPHIL # 0.1 10^3/ul (0.0-0.1); BASOPHILS % 0.4 % (0.0-2.0); EOSINOPHILS # 0.5 10^3/ul (0.0-0.5); EOSINOPHILS % 4.2 % (0.0-7.0); HEMOGLOBIN 9.3 g/dl (14.0-18.0); LYMPHOCYTES # 2.2 10^3/ul (0.8-2.9); LYMPHOCYTES % 19.2 % (15.0-51.0); MEAN CORPUSCULAR HGB CONC 33.2 g/dl (32.0-37.0); MEAN CORPUSCULAR VOLUME 90.3 fl (82.0-101.0); MEAN PLATELET VOLUME 9.8 fl (7.4-10.4); MONOCYTE # 1.4 10^3/ul (0.3-0.9); MONOCYTES % 12.4 % (0.0-11.0); NEUTROPHILS % 61.7 % (39.0-77.0); PLATELET COUNT 445 10^3/UL (140-415); RED CELL DISTRIBUTION WIDTH 13.3 % (11.5-14.5)
[2018-08-21 07:02] LABS: WHITE BLOOD COUNT 11.4 10^3/ul (4.8-10.8)
[2018-08-21 07:18] LABS: ANION GAP 8 (5-13); BLOOD UREA NITROGEN 12 mg/dl (7-20); CALCIUM 8.3 mg/dl (8.4-10.2); CARBON DIOXIDE 32 mmol/L (21-31); CHLORIDE 99 mmol/L (97-110); CREATININE 0.54 mg/dl (0.61-1.24); Estimated GFR > 60 mL/min (>60); GLUCOSE 70 mg/dl (70-220); POTASSIUM 4.2 mmol/L (3.5-5.1); SODIUM 139 mmol/L (135-144)
[2018-08-21] MEDS: INSULIN ASPART [NOVOLOG] 3 ML PEN SC ×6 (08:00→20:45)
[2018-08-21] MEDS: DEXTROSE 50% 50 ML SYRINGE IV (08:15)
[2018-08-21] MEDS: SOD CHLORIDE 0.9% 1,000 ML IV (08:46)
[2018-08-21] MEDS: LISINOPRIL 10 MG TAB PO (09:00)
[2018-08-21] MEDS: HEPARIN 5,000 UNIT/1 ML VIAL SC ×2 (09:32→20:46)
[2018-08-21] MEDS: MUPIROCIN 2% 22 GM OINT TOP ×2 (09:33→21:55)
[2018-08-21] MEDS: INSULIN GLARGINE [LANTus] (100 UNITS/ML) SYG SC (20:44)
[2018-08-22] MEDS: PIPER-TAZO 3.375 GM IV (PMX) 100 ML IVPB ×4 (00:45→21:32)
[2018-08-22] MEDS: SOD CHLORIDE 0.9% 1,000 ML IV ×2 (02:30→04:46)
[2018-08-22] MEDS: ACCU-CHEK XX (02:30)
[2018-08-22] MEDS: HYDROmorphONE 1 MG/ML SYG IV ×4 (02:32→17:21)
[2018-08-22] MEDS: VANCOMYCIN 1 GM 250 ML IVPB ×3 (04:47→23:48)
[2018-08-22 05:16] LABS: ADD MAN DIFF? NO
[2018-08-22 05:34] LABS: BASOPHILS % 0.4 % (0.0-2.0); EOSINOPHILS # 0.5 10^3/ul (0.0-0.5); EOSINOPHILS % 4.9 % (0.0-7.0); HEMATOCRIT 25.7 % (42.0-52.0); HEMOGLOBIN 8.5 g/dl (14.0-18.0); LYMPHOCYTES # 1.9 10^3/ul (0.8-2.9); LYMPHOCYTES % 18.3 % (15.0-51.0); MEAN CORPUSCULAR HEMOGLOBIN 30.2 pg (29.0-33.0); MEAN CORPUSCULAR HGB CONC 33.1 g/dl (32.0-37.0); MEAN CORPUSCULAR VOLUME 91.5 fl (82.0-101.0); MEAN PLATELET VOLUME 9.4 fl (7.4-10.4); MONOCYTE # 1.4 10^3/ul (0.3-0.9); MONOCYTES % 13.2 % (0.0-11.0); NEUTROPHIL # 6.3 10^3/ul (1.6-7.5); NEUTROPHILS % 61.7 % (39.0-77.0); PLATELET COUNT 488 10^3/UL (140-415); RED BLOOD COUNT 2.81 10^6/ul (4.70-6.10); RED CELL DISTRIBUTION WIDTH 13.1 % (11.5-14.5)
[2018-08-22 05:34] LABS: WHITE BLOOD COUNT 10.2 10^3/ul (4.8-10.8)
[2018-08-22] MEDS: PANTOPRAZOLE (EC) 40 MG TAB PO (05:52)
[2018-08-22 06:13] LABS: ANION GAP 5 (5-13); BLOOD UREA NITROGEN 14 mg/dl (7-20); CALCIUM 8.3 mg/dl (8.4-10.2); CARBON DIOXIDE 35 mmol/L (21-31); CHLORIDE 97 mmol/L (97-110); CREATININE 0.54 mg/dl (0.61-1.24); Estimated GFR > 60 mL/min (>60); GLUCOSE 140 mg/dl (70-220); POTASSIUM 4.1 mmol/L (3.5-5.1); SODIUM 137 mmol/L (135-144)
[2018-08-22] MEDS: INSULIN ASPART [NOVOLOG] 3 ML PEN SC ×7 (07:51→21:32)
[2018-08-22] MEDS: HEPARIN 5,000 UNIT/1 ML VIAL SC ×2 (08:29→21:07)
[2018-08-22] MEDS: LISINOPRIL 10 MG TAB PO (08:31)
[2018-08-22] MEDS: MUPIROCIN 2% 22 GM OINT TOP ×2 (08:32→21:07)
[2018-08-22] MEDS: HYDROmorphONE 2 MG TAB PO ×2 (18:41→23:20)
[2018-08-22] MEDS: INSULIN GLARGINE [LANTus] (100 UNITS/ML) SYG SC (20:19)
[2018-08-23] MEDS: ACCU-CHEK XX (02:00)
[2018-08-23] MEDS: PIPER-TAZO 3.375 GM IV (PMX) 100 ML IVPB ×2 (05:32→14:00)
[2018-08-23] MEDS: HYDROmorphONE 2 MG TAB PO ×2 (05:33→10:31)
[2018-08-23] MEDS: PANTOPRAZOLE (EC) 40 MG TAB PO (05:33)
[2018-08-23] MEDS: INSULIN ASPART [NOVOLOG] 3 ML PEN SC ×4 (08:00→12:39)
[2018-08-23] MEDS: HEPARIN 5,000 UNIT/1 ML VIAL SC (09:00)
[2018-08-23] MEDS: LISINOPRIL 10 MG TAB PO (09:30)
[2018-08-23] MEDS: MUPIROCIN 2% 22 GM OINT TOP (09:32)
[2018-08-23] MEDS: VANCOMYCIN 1 GM 250 ML IVPB (12:00)
== END 2018-08-23 15:53 | disposition home health service (06) | DRG 853 ==
LOC: 6WM 08-16 09:25 → TEL 08-15 15:23 → PP2 08-18 19:26 → E/R 11:26 → ICU 16:50
PROC: 0LB70ZZ Excision of Right Hand Tendon, Open Approach (ICD-10-PCS; principal; 2018-08-16 07:30)
DX: A41.9 Sepsis, unspecified organism (principal); M72.6 Necrotizing fasciitis; A48.0 Gas gangrene; E11.10 Type 2 diabetes mellitus with ketoacidosis without coma; L03.113 Cellulitis of right upper limb; E11.52 Type 2 diabetes mellitus with diabetic peripheral angiopathy with gangrene; E11.65 Type 2 diabetes mellitus with hyperglycemia; Z79.4 Long term (current) use of insulin
CPT/HCPCS: 36415; 36600; 71045; 73130-RT; 73200; 73218; 80048; 80053; 80061; 80202; 81001; 82803; 82962; 83036; 83605; 83690; 83735; 84100; 84439; 84443; 85025; 85610; 85651; 85730; 86140; 87070; 87075; 87081; 87086; 87102; 87116; 96361; 96365; 96366; 96367; 96368; 96372; 96375; 97161; 99291-25

== ENCOUNTER 2018-09-26 13:16 | Emergency (ER) | payer SELFPAY, MEDICAID | END 2018-09-26 14:55 | disposition home or self-care (01) | LOC: FTE 13:16 | DX: Z48.02 Encounter for removal of sutures (principal); F17.210 Nicotine dependence, cigarettes, uncomplicated; Z79.4 Long term (current) use of insulin | CPT/HCPCS: 99281 ==

== ENCOUNTER 2018-10-07 12:52 | Emergency (ER) | payer SELFPAY ==
[2018-10-07] MEDS ORDERED: SOD CHLORIDE 0.9% 570 ML IV (13:30)
[2018-10-07] MEDS: SOD CHLORIDE 0.9% 1,000 ML IV ×2 (13:33→14:46)
[2018-10-07 13:50] LABS: AADO2 Venous 50.6 mmHg; MODE ROOM AIR; MetHgb Venous 0.3 %; Sample Type Blood venous; Site OTHER; Venous COHb 0.2 %; Venous Fraction OxyHgb 76.9 %; Venous Oxygen Sat 77.3 mmHG (55.0-75.0); Venous Total Hemglobin 11.2 g/dl
[2018-10-07 13:51] LABS: ADD MAN DIFF? NO
[2018-10-07 13:53] LABS: BASOPHILS % 0.6 % (0.0-2.0); EOSINOPHILS % 15.3 % (0.0-7.0); HEMATOCRIT 32.1 % (42.0-52.0); HEMOGLOBIN 10.9 g/dl (14.0-18.0); LYMPHOCYTES # 2.1 10^3/ul (0.8-2.9); LYMPHOCYTES % 32.7 % (15.0-51.0); MEAN CORPUSCULAR HEMOGLOBIN 30.2 pg (29.0-33.0); MEAN CORPUSCULAR VOLUME 88.9 fl (82.0-101.0); MEAN PLATELET VOLUME 10.8 fl (7.4-10.4); MONOCYTE # 0.4 10^3/ul (0.3-0.9); MONOCYTES % 5.5 % (0.0-11.0); NEUTROPHILS % 45.6 % (39.0-77.0); PLATELET COUNT 204 10^3/UL (140-415); RED BLOOD COUNT 3.61 10^6/ul (4.70-6.10)
[2018-10-07 13:53] LABS: WHITE BLOOD COUNT 6.5 10^3/ul (4.8-10.8)
[2018-10-07 14:06] LABS: ADD UMIC NO; UR ASCORBIC ACID NEGATIVE (NEGATIVE); UR BILIRUBIN (Dip) NEGATIVE (NEGATIVE); UR BLOOD (Dip) NEGATIVE (NEGATIVE); UR CLARITY CLEAR (CLEAR); UR COLOR STRAW (YELLOW); UR GLUCOSE (Dip) 3+ mg/dL (NEGATIVE); UR KETONES (Dip) NEGATIVE (NEGATIVE); UR LEUKOCYTE ESTERASE (Dip) NEGATIVE Leu/ul (NEGATIVE); UR NITRITE (Dip) NEGATIVE (NEGATIVE); UR SPECIFIC GRAVITY (Dip) 1.025 (1.003-1.030); UR TOTAL PROTEIN (Dip) NEGATIVE (NEGATIVE); UR UROBILINOGEN (Dip) NEGATIVE (NEGATIVE)
[2018-10-07 14:20] LABS: ANION GAP 10 (5-13); BLOOD UREA NITROGEN 26 mg/dl (7-20); CALCIUM 9.6 mg/dl (8.4-10.2); CARBON DIOXIDE 25 mmol/L (21-31); CHLORIDE 97 mmol/L (97-110); CREATININE 0.65 mg/dl (0.61-1.24); Estimated GFR > 60 mL/min (>60); MAGNESIUM 1.8 mg/dl (1.7-2.5); PHOSPHORUS 4.4 mg/dl (2.5-4.9); POTASSIUM 4.8 mmol/L (3.5-5.1); SODIUM 132 mmol/L (135-144)
[2018-10-07 14:27] LABS: GLUCOSE 623 mg/dl (70-220)
[2018-10-07] MEDS: INSULIN REGULAR, HUMAN 100 UNIT/1 ML 3ML VIAL SC (14:51)
== END 2018-10-07 17:16 | disposition home or self-care (01) ==
LOC: E/R 12:52
DX: E11.65 Type 2 diabetes mellitus with hyperglycemia (principal); E86.0 Dehydration; D64.9 Anemia, unspecified; R81 Glycosuria; F17.210 Nicotine dependence, cigarettes, uncomplicated; Z79.4 Long term (current) use of insulin
CPT/HCPCS: 36415; 80048; 81003; 82803; 82962; 83735; 84100; 85025; 96360; 96361; 96372; 99284-25